=== PATIENT | female | born 1985 ===

== ENCOUNTER 2021-06-20 09:58 | Outpatient (CLI) | payer OTHER | END 2021-06-20 12:20 | disposition home or self-care (01) | LOC: PRENATAL 09:58 | PROVIDERS: ATTEND Obstetrics & Gynecology Maternal & Fetal Medicine | DX: O35.0XX0 Maternal care for (suspected) central nervous system malformation in fetus, not applicable or unspecified (principal); O35.3XX0 Maternal care for (suspected) damage to fetus from viral disease in mother, not applicable or unspecified ==